=== PATIENT | female | born 1995 | race Caucasian/White ===

== ENCOUNTER 2019-03-06 19:20 | Emergency (ER) | payer SELFPAY ==
--- NOTE | 2019-03-06 19:40 | ED.PDOC ---
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 with pain on weight bearing left knee.Denies history of trauma;strain or any other injury.No chronic medical problem Occurred: other - 2 days ago Pain - Lower Extremity: moderate: Left Knee Method of Injury: unknown Improving Factors: rest Worsening Factors: movement Associated Symptoms: pain Allergies/Adverse Reactions: Allergies NO KNOWN ALLERGY Allergy (Verified 03/06/19 19:36) Home Medications: Ambulatory Orders Acetamin W/Cod #3 Tab [Tylenol w/CODEINE #3] 1 ea PO TID PRN #14 tab 03/06/19 Albuterol Inhaler [Ventolin Hfa Inhaler] 1 puff INH Q4HR PRN 03/06/19 Review of Systems - Review of Systems Musculoskeletal: States: see HPI, joint pain - left knee Past Medical History (General) - Patient Medical History Hx Asthma: Yes Surgical History: no surgical history - Vaccination History Hx Influenza Vaccination: No - Social History Hx Alcohol Use: No Hx Substance Use: No Hx Physical Abuse: No Hx Emotional Abuse: No - Female History Patient is a Female of Child Bearing Age (10 -59 yrs old): Yes Hx Last Menstrual Period: 03/06/19 Patient : No - Triage Comment ED Triage Comment: Pain to left knee, edema noted. Denies any specific injury or trauma to area Family Medical History - Family History Father Family History: Unknown Hx Family;Other: BRAIN ANEURYSM-mom Physical Exam - Physical Exam General Appearance: Alert, Comfortable, No apparent distress Eyes, Ears, Nose, Throat: normal ENT inspection Neck: supple, normal inspection Cardiovascular/Respiratory: regular rate, rhythm, no M/R/G, normal peripheral pulses, normal breath sounds Gastrointestinal/Abdominal: non-tender Back: normal inspection, no vertebral tenderness Thigh/Hip: normal inspection, non-tender, no evidence of injury Leg: normal inspection, non-tender, no evidence of injury, other - negative H omans sign Knee: limited ROM - pain, soft tissue tenderness - left knee Ankle: normal inspection, non-tender, no evidence of injury Foot: normal inspection, non-tender, no evidence of injury Neuro/Tendon: normal sensation, normal motor functions, normal tendon functions, responds to pain Mental Status: alert, oriented x 3 Skin: normal color, warm/dry Progress - Progress Progress: 03/06/19 20:09 Vital Signs - 8 hr 03/06/19 19:32 Temperature 99.2 F Pulse Rate [ 80 Right] Respiratory 16 Rate Blood Pressure 130/71 [Left Arm] O2 Sat by Pulse 98 Oximetry - Results/Orders Results/Orders: Vital Signs - 8 hr 03/06/19 03/06/19 19:32 21:42 Temperature 99.2 F Pulse Rate [ 80 58 L Right] Respiratory 16 16 Rate Blood Pressure 130/71 114/60 [Left Arm] O2 Sat by Pulse 98 99 Oximetry 03/06/19 22:10 Hydrocod/APAP 10/325 (ER Disp) [[place] 10/325 ER Dispense #3 tablets] 1 ea PO ONCE ONE Laboratory Results - last 24 hr 03/06/19 03/06/19 03/06/19 20:03 20:03 20:03 WBC 8.9 RBC 4.22 Hgb 12.6 Hct 37.4 MCV 88.6 MCH 29.8 MCHC 33.6 RDW 13.1 Plt Count 240 MPV 8.8 Absolute Neuts (auto) 4.70 Absolute Lymphs (auto) 3.40 Absolute Monos (auto) 0.40 Absolute Eos (auto) 0.30 Absolute Basos (auto) 0.10 Neutrophils % 53.4 Lymphocytes % 38.4 Monocytes % 4.2 Eosinophils % 3.3 Basophils % 0.7 ESR 12 Sodium Potassium Chloride Carbon Dioxide Anion Gap BUN Creatinine BUN/Creatinine Ratio Random Glucose Serum Osmolality Uric Acid 6.2 Calcium 03/06/19 20:03 WBC RBC Hgb Hct MCV MCH MCHC RDW Plt Count MPV Absolute Neuts (auto) Absolute Lymphs (auto) Absolute Monos (auto) Absolute Eos (auto) Absolute Basos (auto) Neutrophils % Lymphocytes % Monocytes % Eosinophils % Basophils % ESR Sodium 136 Potassium 3.2 L Chloride 106 Carbon Dioxide 21 Anion Gap 12.2 BUN 11 Creatinine 0.71 BUN/Creatinine Ratio 15.5 Random Glucose 124 H Serum Osmolality 272.8 L Uric Acid Calcium 8.8 Discuss all test result with patient;patient stated has crutches,knee brace,devin wrap at home advised to use it - EKG/XRAY/CT XRAY: knee - left no acute abnormalities noted Departure - Departure Clinical Impression: Knee pain, acute Qualifiers: Laterality: left Qualified Code(s): M25.562 - Pain in left knee Time of Disposition: 22:10 Disposition: Discharge to Home or Self Care Condition: Good Departure Forms: ED Discharge - Pt. Copy, Patient Portal Self Enrollment Instructions: DI for Knee Pain Activity: walking as tolerated Prescriptions: Acetamin W/Cod #3 Tab [Tylenol w/CODEINE #3] 1 ea PO TID PRN #14 tab PRN Reason: Pain Home Medications: Ambulatory Orders Acetamin W/Cod #3 Tab [Tylenol w/CODEINE #3] 1 ea PO TID PRN #14 tab 03/06/19 Albuterol Inhaler [Ventolin Hfa Inhaler] 1 puff INH Q4HR PRN 03/06/19 Additional Instructions: Need to sign up with primary Md AKUA [phone];Ice pack to affected area during WAKING HOURS ONLY 20 minutes 3 x a day as needed until better;Over the counter medication Aleve 1-2 tablets am/pm for pain may take with Tylenol -3
--- NOTE | 2019-03-06 20:07 | RAD ---
EXAM DESCRIPTION: Knee,Left 2 or More Views CLINICAL HISTORY: 23 years Female, pain to l knee COMPARISON: None. FINDINGS: Left knee 3 views No fracture or dislocation. Soft tissues are unremarkable. IMPRESSION: No acute abnormality. Electronically signed by: Amadeo Tian MD 03/06/2019 8:05 PM CDT
[2019-03-06] MEDS ORDERED: HYDROcodone 10MG/APAP 325MG 1 EA TAB PO ONE (21:16)
[2019-03-06] MEDS ORDERED: KETOROLAC TROMETHAMINE INJ 30 MG/ML VIAL ONE (21:22)
[2019-03-06] MEDS ORDERED: KETOROLAC TROMETHAMINE INJ 30 MG/ML VIAL IM ONE (21:22)
[2019-03-06 21:43] VITALS: BP 114/60; O2SAT 99
[2019-03-06] MEDS ORDERED: HYDROCOD/APAP 10/325 (ER DISP) # 3 tablets PO ONE (22:10)
[2019-03-06 22:26] VITALS: TEMP 98.8
== END 2019-03-06 22:26 | disposition home or self-care (01) ==
LOC: ER 19:20
DX: M25.562 Pain in left knee (principal); J45.909 Unspecified asthma, uncomplicated; Z79.899 Other long term (current) drug therapy
CPT/HCPCS: 36415; 73560; 80048; 84550; 85025; 85651; J1885